=== PATIENT | male | born 1995 | race Caucasian/White ===

== ENCOUNTER 2023-04-10 08:29 | Emergency (ER) | payer OTHER, SELFPAY ==
[2023-04-10 08:31] VITALS: BP 111/68; PULSE 109; RESP 14; TEMP 37.7; O2SAT 100; BMI 19.8
--- NOTE | 2023-04-10 08:50 | EDS_ITS ---
HPI History of Present Illness Chief Complaint: Fever Informant: patient Onset/Context/Timing Onset: Days Context: Gradual Onset Timing: Continuous Current Severity: Mild Maximum Severity: Mild Narrative Narrative: 27-year-old male no seen past medical or surgical history. Currently on no medications. Said it really felt well since morning and he subjectively has had a fever. He has not documented that with her vomiting. And then yesterday noticed a rash on his right hip. 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 He denies any other complaints. No sore throat. No earache. No cough. No abdominal pain no dysuria. The rash is only on the right hip. Nowhere else. Prior similar symptoms: No Recent Illness/Hospitalization: No PFSH PFSH Medical History no medical history no medical history Home Medications doxycycline hyclate 100 mg capsule 100 mg PO BID 10 days #20 caps 04/10/23 [Rx Last Taken Unknown] Allergy/AdvReac Type Severity Reaction Status Date / Time No Known Allergies Allergy Verified 04/10/23 08:31 Surgical History no surgical history no surgical history ROS ROS ED ROS Narrative Right hip rash. Subjective fever. Review of Systems ROS Unobtainable: Denies due to encephalopathy Constitutional Constitutional ED: Reports fever(s) and subjective Eyes Eyes: Denies blurry vision ENT ENT ED: Denies ear pain Cardiovascular Cardiovascular: Denies chest pain Respiratory/Chest Respiratory/Chest: Denies cough Gastrointestinal Gastrointestinal: Denies abdominal pain Genitourinary Genitourinary ED: Denies dysuria Musculoskeletal Musculoskeletal: Denies arthralgias or back pain Integumentary Reports rash; Denies abscess or Abrasions Neurologic Neurologic: Denies headache(s) Psychiatric Psychiatric: Denies anxiety Endocrine Endocrinology: Denies cold intolerance Hematologic/Lymphatic Hematologic/Lymphatic: Denies systems reviewed and no addt'l complaints, except as documented Allergic/Immunologic Allergic/Immunologic ED: Denies mouth swelling or tongue swelling EXAM Physical Exam Narrative Exam Narrative: Well-appearing 27-year-old male. Vital signs are stable. He has a low-grade temperature 99.8. He does not look septic toxic. He is in no distress. Pulse ox 100% on room air no signs of hypoxia. H EENT exam unremarkable. Posterior pharynx normal. No erythema or exudate. No trouble swallowing or breathing. Right TM normal left obscured by wax. Neck nontender no lymphadenopathy. Trachea midline. Lungs clear to auscultation bilaterally. Heart regular rhythm rate about 105 no murmur. Chest wall nontender. Abdomen soft nontender. No rash on his chest abdomen or back. Back nontender. Moving all 4 extremities. Neurovascular intact. Calves are nontender without edema. On his right hip it is a rash that could be consistent with Lyme disease. The hip itself is not septic. He has normal range of motion. There is no swelling. Or any significant tenderness. Neurologically is awake and alert. Skin is normal except for the rash on his right hip. Const Vital Signs: 04/10/23 08:31 Temperature 99.8 F H Temperature Source Temporal Pulse Rate 109 H Respiratory Rate 14 Blood Pressure 111/68 Blood Pressure Mean 82 Pulse Ox 100 Oxygen Delivery Method Room Air Positive well nourished and well developed; Negative for obese, cachectic, contractures or unkempt General Appearance ED: well developed and NAD; Negative for unkempt, cachectic, contractures, cyanotic or diaphoretic Nutritional Appearance: Negative for cachectic or obese HEENT Reports moist mucous membranes; Denies dry mucous membranes Negative for trauma or tenderness Mouth ED: No dry mucous membranes Mouth: No dry mucous membranes Eyes PERRL and EOMs intact bilaterally General Eye ED: Negative for pale conjunctiva, scleral icterus or other Neck no lymphadenopathy, supple and no JVD General: Negative for tenderness Lymph Lymphatic: Negative for other Chest Wall inspection of chest normal and palpation of chest normal Chest: Negative for other Resp normal respiratory effort and clear to auscultation bilaterally Effort and Inspection: Negative for retractions Auscultation: Negative for rales, rhonchi or wheezes Cardio regular rhythm, S1 normal heart sound, S2 normal heart sound and no murmurs; Negative for regular rate Palpation: Negative for palpable S3 Rate: tachycardic; Negative for bradycardia GI normal to inspection, nondistended, normoactive bowel sounds, non-tender, non- distended and no masses Inspection: Negative for abdominal distention Auscultation: normoactive bowel sounds Palpation: soft; Negative for tender or guarding Back/Spine no CVA tenderness General Back: Negative for CVA tenderness Cervical Spine: Negative for cervical spine tenderness Thoracic Spine / Upper Back: Negative for thoracic spinal tenderness Lumbar Spine / Lower Back: Negative for lumbar spinal tenderness Extremity normal to inspection General Extremety ED: Negative for edema, tenderness or other findings General Extremity: Negative for edema or other findings Neuro oriented x3 and CN's II-XII intact bilaterally Sensorium / Orientation: alert; Negative for orientation impaired Motor Exam: strength 5/5 throughout and general weakness; Negative for strength abnormal Psych mental status grossly normal Appearance: Negative for unkempt Attitude: No agitated Mood & Affect: Negative for depressed, anxious or tearful Skin No no rashes or lesions noted, no wounds and skin turgor normal General Skin Exam: elasticity normal Lesions: No lesion noted Rashes: No rashes noted Trauma: Negative for abrasion Wounds: Negative for wounds noted MDM MDM MDM Narrative Medical decision making narrative: 27-year-old male clinically looks well. Has a rash on his right hip that is red and blanches. He has had a subjective fever since . Clinically looks well. He will be treated for presumed Lyme disease. I will send testing for Lyme disease. Will be started on doxycycline 100 twice daily for 10 days and outpatient follow-up with his primary care physician. I do not think needs any other testing at this time his exam otherwise is benign. History & Record Review Discussion w/independent historian: Patient Additional record(s) reviewed:: No prior records Discharge Plan Triage Chief Complaint: Fever ED Provider: Lv Gomez Dx/Rx/DC Orders Clinical Impression: Acute Lyme disease, Fever Instructions: ED Lyme Disease Prescriptions: New doxycycline hyclate 100 mg capsule 100 mg PO BID 10 Days Qty: 20 0RF Activity Restrictions/Additional Instructions: Most likely Lyme disease. I did send the testing that will be back for several days. Motrin and Tylenol for fever. Follow-up with your doctor ensure you are improving. They may have to keep you on antibiotics longer depending on how you are feeling symptoms. Disposition Disposition: Home, Self Care
[2023-04-10] MEDS: Doxycycline 100 MG CAPSULE PO (09:30)
--- NOTE | 2023-04-10 09:35 | ED.RN ---
Patient aware of lab send out and possible results at end of week.
[2023-04-12 10:08] LABS: Lyme Scn Total Ab w/Rflx Negative (Negative)
== END 2023-04-10 10:04 | disposition home or self-care (01) ==
PROVIDERS: Emergency Provider Emergency Medicine; Visit Provider Emergency Medicine
DX: A69.20 Lyme disease, unspecified (principal); R50.9 Fever, unspecified
CPT/HCPCS: 86618; 99282

== ENCOUNTER 2023-09-20 18:45 | Emergency (ER) | payer OTHER, SELFPAY ==
[2023-09-20 18:46] VITALS: BP 102/74; PULSE 121; RESP 18; TEMP 37.4; O2SAT 96; BMI 20.7
--- NOTE | 2023-09-20 20:31 | EKG12_ITS ---
Test Reason : GENERAL ILLNESS Blood Pressure : / mmHG Vent. Rate : 063 BPM Atrial Rate : 063 BPM P-R Int : 160 ms QRS Dur : 102 ms QT Int : 394 ms P-R-T Axes : 054 093 064 degrees QTc Int : 403 ms Normal sinus rhythm with sinus arrhythmia Rightward axis Borderline ECG Confirmed by DONNA MOLINA, NANNETTE ([id number]), publishing editor TAQUERIA PHAN ([id number]) on 09/26/2023 1:40:33 P M Referred By: CATHY Confirmed By:MARGARET THOMPSON MD
--- NOTE | 2023-09-20 20:32 | EDS_ITS ---
HPI History of Present Illness Chief Complaint: General Illness Informant: patient Narrative Narrative: Patient for states he comes in because he is feeling worn out and he had a Lyme test some months ago and was wondering what the results were. We looked this up and it was negative. Manuel has further questions. It sounds like he has been having episodes occasionally of feeling weak and tired. Over the last few days he has been having cough occasionally bringing up green sputum. He has had fevers chills. Myalgias malaise. No headache. No nausea vomiting diarrhea. No known exposures. He states he has had the symptoms occasionally since he was tested for Lyme but this really seems to be a new thing. No known exposures to illnesses. He denies any chronic medical conditions. PFSH PFS Home Medications doxycycline monohydrate 100 mg capsule 100 mg PO BID #20 CAPSULES 09/20/23 [Rx Last Taken Unknown] Allergy/AdvReac Type Severity Reaction Status Date / Time No Known Allergies Allergy Verified 09/20/23 18:48 Family History no significant family his Surgical History History of appendectomy Social History household members: family housing: house Smoking Status: Current every day smoker tobacco type: cigarettes ROS ROS ED Constitutional Constitutional ED: Reports subjective and sweats Eyes Eyes: Denies change in vision ENT ENT ED: Reports rhinorrhea; Denies ear pain or sore throat Cardiovascular Cardiovascular: Denies chest pain, palpitations or racing heartbeat Respiratory/Chest Respiratory/Chest: Reports cough and sputum Gastrointestinal Gastrointestinal: Denies abdominal pain, diarrhea, nausea or vomiting Genitourinary Genitourinary ED: Denies dysuria Musculoskeletal Musculoskeletal: Reports myalgias Integumentary Denies rash Neurologic Neurologic: Denies headache(s) Hematologic/Lymphatic Hematologic/Lymphatic: Denies lymphadenopathy Allergic/Immunologic Allergic/Immunologic ED: Denies urticaria EXAM Physical Exam Narrative Exam Narrative: CONSTITUTIONAL: Patient is nontoxic in appearance. The patient looks comfortable. Work of breathing looks normal. HEENT: No notable trauma. Mucous membranes do look very dry. No exudate. Voice is normal. No sinus tenderness. No indication of pain with swallowing. EYES: No conjunctival injection. No proptosis. No icterus. No pallor. NECK:No JVD. No stridor. CARDIOVASCULAR: Mildly tachycardic rate. Regular rhythm. No notable murmur. No JVD. RESPIRATORY: No respiratory distress. Breathing is unlabored. No wheezes. No rhonchi. No rales. No pain with a deep breath. No chest wall tenderness. He is not coughing while I am in the room. GASTROINTESTINAL: Not distended. Bowel sounds are normal. No tenderness. No guarding. No rebound. No palpable mass. No bruit is heard. GENITOURINARY: No tenderness over the bladder. No CVA tenderness. MUSCULOSKELETAL: Atraumatic. No peripheral edema. No cord. No tenderness along the deep venous system. No asymmetry. No distended veins. NEUROLOGICAL: Patient is alert and appropriate. No focal deficit noted. SKIN: No noted rashes. No diaphoresis. PSYCHIATRIC: Patient is calm. Mood is appropriate. Const Vital Signs: 09/20/23 18:46 09/20/23 19:47 Temperature 99.4 F H Temperature Source Temporal Pulse Rate 121 H Respiratory Rate 18 Respiratory Pattern Normal Blood Pressure 102/74 Blood Pressure Mean 83 Pulse Ox 96 Oxygen Delivery Method Room Air MDM MDM MDM Narrative Medical decision making narrative: My independent interpretation the patient's two-view x-ray does show sign of infiltrate near the right middle lobe. Radiology also agrees with this. Patient's white count is high at 22,000. Hemoglobin platelets are normal. Knoop graph patient's electrolytes show minimally low sodium. Creatinine is okay. BUN is okay. Patient's glucose is mildly high at 117. This can be reached but is likely high due to stress of infection. This patient is young and healthy. He had a heart rate recorded 121 when he came in but when I listen to them it was slow and normal. His EKG is normal. He is eating and drinking. He is not nauseated. He has no history immune issues. We discussed reasons to return. COVID and influenza are negative. Lab Data Attestation: I reviewed the patient's lab results. Labs: Laboratory Results - last 24 hr 09/20/23 19:56 WBC 22.0 H RBC 4.78 Hgb 14.4 Hct 42.4 MCV 88.7 MCH 30.1 MCHC 34.0 RDW Std Deviation 37.7 RDW Coeff of Iker 11.7 Plt Count 218 MPV 9.2 Immature Gran % (Auto) 1.100 H Neut % (Auto) 85.8 H Lymph % (Auto) 3.3 L Bucks % (Auto) 9.3 Eos % (Auto) 0.3 Baso % (Auto) 0.2 Absolute Neuts (auto) 18.9 H Absolute Lymphs (auto) 0.72 L Nucleated RBC % 0 Differential Comment SEE COMMENT Diff Path Review May foll Platelet Estimate ADEQUATE RBC Morphology N CHROM Anisocytosis RARE Macrocytosis RARE Sodium 134 L Potassium 3.9 Chloride 101 Carbon Dioxide 26.0 Anion Gap 7 BUN 17 Creatinine 1.15 Estim Creat Clear Calc 82.44 Est GFR (MDRD) Af Amer 99 Est GFR (MDRD) Non-Af 82 BUN/Creatinine Ratio 14.8 Glucose 117 H Calcium 10.1 Radiography Diagnostic Testing: Clinical Impression(s) from Imaging Studies Chest X-Ray 09/20/23 20:50 IMPRESSION: Right middle lobe infiltrate. Electronically Signed: Uriel Sheppard MD at 21:14 EST Reading Location ID and State: [address] [place] [address] Tel , Service support , Discharge Plan Triage Chief Complaint: General Illness ED Provider: Ronak Kaba Dx/Rx/DC Orders Clinical Impression: Leukocytosis, Community acquired pneumonia Instructions: ED Pneumonia (Adult) Prescriptions: New doxycycline monohydrate 100 mg capsule 100 mg PO BID Qty: 20 0RF Primary Care Provider: Care Physician,No Primary Referrals: Katy Muñoz DO [Med Staff - Composite Bond Technician] - 3-5 Days if not improving Care Physician,No Primary [Primary Care Provider] - Disposition Disposition: Home, Self Care
[2023-09-20 20:40] LABS: Absolute Lymphocyte Count 0.72 X10^3/uL (0.83-4.51); Absolute Neutrophil Count 18.9 X10^3/uL (2.0-7.7); Basophil# 0.05 X10^3/uL; Basophil% 0.2 % (0-1); Eosinophil# 0.06 X10^3/uL; Eosinophils% 0.3 % (0-5); Hematocrit 42.4 % (40-54); Hemoglobin 14.4 g/dL (13.0-16.5); Lymphocyte # 0.72 X10^3/ul (0.83-4.51); Lymphocyte % 3.3 % (19-41); Mean Corpuscular Hgb 30.1 pg (27.0-32.0); Mean Corpuscular Volume 88.7 fL (80-94); Mean Platelet Vol. 9.2 fl (6.2-12.0); Monocyte# 2.05 X10^3/uL; Monocyte% 9.3 % (0-10); NRBC Flagged by Analyzer 0 % (0-5); Neutrophil # 18.89 X10^3/uL (2.7-7.7); Neutrophil % 85.8 % (47-70); POSITIVE DIFFERENTIAL YES; Platelet Count 218 K/mm3 (150-450); RBC Distribution Width CV 11.7 % (11.6-14.6); RBC Distribution Width SD 37.7 fl (35.1-43.9); Red Blood Count 4.78 M/mm3 (4.6-6.2)
[2023-09-20] MEDS: 0.9% Normal Saline (1000mL) 1,000 ML 1000 ML IV (20:40)
[2023-09-20 20:48] LABS: Differential Indicated SCAN CRITERIA MET
--- NOTE | 2023-09-20 20:50 | RAD_ITS ---
INDICATION: cough EXAMINATION/TECHNIQUE: X-RAY - XR Chest 2 Views COMPARISON: No relevant prior comparison study available FINDINGS: LINES/DEVICES: None. LUNGS: The lungs are well expanded. Middle lobe patchy opacity compatible with infiltrate. MEDIASTINUM AND CARDIOVASCULAR STRUCTURES: Cardiac silhouette not enlarged. Central airways and mediastinal contour are unremarkable. BONES AND SOFT TISSUES: Unremarkable. RAD/Chest PA and Lateral IMPRESSION: Right middle lobe infiltrate. Electronically Signed: Uriel Sheppard MD at 21:14 EST ,
[2023-09-20 21:07] LABS: Anion Gap 7 (5-15); BUN 17 mg/dL (7-18); BUN/Creat Ratio 14.8 RATIO (10-20); Calcium,Total 10.1 mg/dL (8.5-10.1); Chloride 101 mmol/L (98-107); Creatinine, Serum 1.15 mg/dL (0.70-1.30); EST Glomerular Filtration Rate 82 mL/min (>60); Est Glom Filt Rate - Afr Amer 99 mL/min (>60); Estimated Creatinine Clearance 82.44 ml/min; Glucose 117 mg/dL (74-106); Potassium 3.9 mmol/L (3.5-5.1); Sodium Level 134 mmol/L (136-145)
[2023-09-20 21:21] LABS: Platelet Estimate ADEQUATE (ADEQ)
[2023-09-20 21:22] LABS: Anisocytosis RARE; Macrocytosis RARE; Red Cell Morphology N CHROM NORMAL (NORM C&C)
[2023-09-20] MEDS: Doxycycline 100 MG CAPSULE PO (21:48)
[2023-09-22 08:46] LABS: Pathologist Review Reviewed
== END 2023-09-20 22:08 | disposition home or self-care (01) ==
PROVIDERS: Emergency Provider Emergency Medicine; Visit Provider Emergency Medicine
DX: J18.9 Pneumonia, unspecified organism (principal); F17.210 Nicotine dependence, cigarettes, uncomplicated
CPT/HCPCS: 71046; 80048; 85025; 87428; 93005; 96360; 99283; J7030